=== PATIENT | female | born 2000 | race Caucasian/White ===

== ENCOUNTER 2023-04-04 10:56 | Observation (INO) | payer MEDICAID ==
[~2023-04-04] VITALS: Ht 157.5 cm; Wt 78.0 kg
[2023-04-04 11:22] VITALS: BP 106/68; PULSE 66; RESP 18; TEMP 98.1
[2023-04-04] MEDS ORDERED: PNV91TAB10 PO (11:28)
== END 2023-04-04 12:33 | disposition home or self-care (01) ==
LOC: MLD 10:56
PROVIDERS: ADMIT Obstetrics & Gynecology; ATTEND Obstetrics & Gynecology
DX: O26.892 Other specified pregnancy related conditions, second trimester (principal); R10.30 Lower abdominal pain, unspecified; Z3A.22 22 weeks gestation of pregnancy
CPT/HCPCS: G0378; G0379